=== PATIENT | female | born 1970 | race Two or more races ===

== ENCOUNTER 2020-10-02 14:00 | Inpatient (IN) | payer OTHER ==
[~2020-10-02] VITALS: Ht 157.5 cm; Wt 108.0 kg
[2020-10-02] MEDS ORDERED: METFORMIN HCL500 M3 PO (15:09)
[2020-10-02] MEDS ORDERED: SIMVASTATIN10 MG PO (15:09)
[2020-10-02] MEDS ORDERED: TRILIPIX45 MG PO (15:10)
[2020-10-08] MEDS ORDERED: FENOFIBRIC ACI135 MG (10:08)
[2020-10-08] MEDS ORDERED: ATORVASTATIN CA20 MG (10:08)
== END 2020-10-11 13:11 | disposition home or self-care (01) | DRG 743 ==
LOC: EDSTATUS 14:00 → ADM 14:00 → O/R 10-08 05:30 → SURH 10-08 10:30 → OB/GYN 10-08 15:07
PROVIDERS: ADMIT Specialist; ATTEND Specialist
PROC: 0UT10ZZ Resection of Left Ovary, Open Approach (ICD-10-PCS; 2020-10-08)
PROC: 0UT70ZZ Resection of Bilateral Fallopian Tubes, Open Approach (ICD-10-PCS; 2020-10-08)
PROC: 0UT90ZZ Resection of Uterus, Open Approach (ICD-10-PCS; principal; 2020-10-08 10:30)
DX: N72 Inflammatory disease of cervix uteri (principal); D25.0 Submucous leiomyoma of uterus; D25.1 Intramural leiomyoma of uterus; N99.4 Postprocedural pelvic peritoneal adhesions; N83.8 Other noninflammatory disorders of ovary, fallopian tube and broad ligament; N73.6 Female pelvic peritoneal adhesions (postinfective); N84.0 Polyp of corpus uteri; N83.202 Unspecified ovarian cyst, left side; N94.89 Other specified conditions associated with female genital organs and menstrual cycle

== ENCOUNTER → 2020-10-06 07:42 | Outpatient (CLI) | payer OTHER ==
[~2020-10-06 07:42] MED LIST: ATORVASTATIN CA20 MG; FENOFIBRIC ACI135 MG; METFORMIN HCL500 M3 PO; SIMVASTATIN10 MG PO; TRILIPIX45 MG PO
== END | disposition home or self-care (01) ==
LOC: LAB 07:42
PROVIDERS: ATTEND Internal Medicine
DX: E11.9 Type 2 diabetes mellitus without complications (principal)